=== PATIENT | female | born 1995 | race Two or more races ===

== ENCOUNTER → 2020-02-09 | Outpatient (CLI) | payer OTHER | END | disposition home or self-care (01) | LOC: LAB 10:24 | PROVIDERS: ATTEND Nurse Practitioner Family | DX: Z03.818 Encounter for observation for suspected exposure to other biological agents ruled out (principal) | CPT/HCPCS: C9803; U0003 ==

== ENCOUNTER → 2023-04-21 | Outpatient (CLI) | payer BC | END | disposition home or self-care (01) | LOC: XYW 08:47 | PROVIDERS: ATTEND Surgery | DX: R10.11 Right upper quadrant pain (principal) | CPT/HCPCS: 78226; A9537 ==

== ENCOUNTER 2023-06-25 06:12 | Inpatient (IN) | payer BC ==
[2023-06-24 13:46] LABS: Basophils # (auto) 0.1 10 ^3/uL (0-0.2); Basophils % (auto) 0.6 % (0.0-2.0); Eosinophils # (auto) 0.1 10 ^3/uL (0-0.8); Eosinophils % (auto) 0.9 % (0.0-7.0); Hematocrit 40.4 % (36.0-46.0); Hemoglobin 13.4 g/dL (12.2-16.2); Lymphocytes # (auto) 2.7 10 ^3/uL (0.4-5.4); Lymphocytes % (auto) 28.8 % (10.0-50.0); Mean Corpuscular Hemoglobin 30.7 pg (28.0-32.0); Mean Corpuscular Hgb Conc. 33.1 g/dL (32.0-36.0); Mean Corpuscular Volume 92.8 fL (80.0-100.0); Monocytes # (auto) 0.5 10 ^3/uL (0-1.3); Monocytes % (auto) 5.6 % (0.0-12.0); Neutrophils # (auto) 6.1 10 ^3/uL (1.6-8.6); Neutrophils % (auto) 64.1 % (37.0-80.0); Nucleated Red Blood Cells % 0.1 %; Red Blood Cells 4.36 10^6/uL (4.0-5.20); Red Cell Distribution Width 13.6 % (11.8-14.3); White Blood Cell 9.5 10^3/uL (4.4-10.8)
[2023-06-24 14:05] LABS: INR 1.01 (0.9-1.15); Partial Thromboplastin Time 29.4 SEC (24.5-34.5); Prothrombin Time 10.6 sec (9.3-11.8)
[2023-06-24 14:21] LABS: Potassium 3.7 mmol/L (3.5-5.1)
[2023-06-24 14:25] LABS: BUN/Creatinine Ratio 17.4 (10.0-20.0); Bilirubin, Total 0.3 mg/dL (0.2-1.0)
[2023-06-24 14:30] LABS: Urine Bacteria NONE SEEN /hpf (None Seen); Urine Blood 1+ /uL (Negative); Urine Clarity HAZY (Clear); Urine Color Yellow (Yellow); Urine Hyaline Cast FEW /lpf (0 - 2); Urine Protein, UAD Negative (Negative); Urine Specific Gravity 1.018 (1.001-1.035); Urine Urobilinogen Normal (Negative); Urine WBC 7 /hpf (0 - 5); Urine pH 6.5 (5.0-8.0)
[~2023-06-25] VITALS: Ht 200.7 cm; Wt 73.5 kg
[2023-06-25] MEDS ORDERED: ceFAZolin 1GM/50ML 100 ML IV ONE (06:36)
[2023-06-25] MEDS ORDERED: CELECOXIB 100 MG CAP PO ONE (07:15)
[2023-06-25] MEDS ORDERED: GABAPENTIN 400 MG CAP PO ONE (07:15)
[2023-06-25] MEDS ORDERED: ACETAMINOPHEN IV 1000 MG/100ML (10MG/ML) IV ONE (07:15)
[2023-06-25] MEDS ORDERED: ACETAMINOPHEN IV 100 ML IV ONE (07:19)
[2023-06-25] MEDS ORDERED: CELECOXIB 100 MG CAP ONE (07:19)
[2023-06-25] MEDS ORDERED: GABAPENTIN 400 MG CAP ONE (07:19)
[2023-06-25 08:26] VITALS: O2SAT 100
[2023-06-25] MEDS ORDERED: LABETALOL HCL 5 MG/ML 4ML SYRINGE IV PRN (08:45)
[2023-06-25] MEDS ORDERED: ONDANSETRON HCL 4 MG/2 ML VIAL IV PRN ×2 (08:45→14:30)
[2023-06-25] MEDS ORDERED: ePHEDrine SULFATE 50 MG/ML AMP IV PRN (08:45)
[2023-06-25] MEDS ORDERED: fentaNYL CITRATE 100 MCG/2 ML VL IV PRN (08:45)
[2023-06-25] MEDS ORDERED: hydrALAZINE HCL 20 MG/ML VL IV PRN (08:45)
[2023-06-25] MEDS ORDERED: FLUMAZENIL 0.1 MG/ML INJ 10ML MDV IV PRN (08:45)
[2023-06-25] MEDS ORDERED: NALOXONE HCL 0.4 MG/ML VIAL IV PRN (08:45)
[2023-06-25] MEDS ORDERED: oxyCODONE HCL 5MG TAB PO PRN (08:45)
[2023-06-25] MEDS: HYDROmorphone HCL 2 MG/ML VL/or syr IV PRN ×5 (08:52→20:25)
[2023-06-25] MEDS ORDERED: D5W/SOD CHL 0.45%/KCL 20MEQ 1,000 ML IV ONE (09:00)
[2023-06-25] MEDS ORDERED: HYDROmorphone HCL 2 MG/ML VL/or syr IV PRN ×2 (09:00→18:00)
[2023-06-25] MEDS ORDERED: ACETAMINOPHEN/CODEINE#3 (300/30mg) TAB PO PRN (09:00)
[2023-06-25] MEDS ORDERED: SODIUM CHLORIDE 0.9% 1,000 ML IV SCH (14:30)
[2023-06-25] MEDS: ceFAZolin 1GM/50ML 50 ML IV SCH ×2 (14:31→20:33)
[2023-06-25] MEDS: metroNIDAZOLE 500MG/100ML 100 ML IV SCH ×2 (15:10→22:11)
[2023-06-25 17:00] VITALS: BP 111/68; PULSE 116; RESP 18; TEMP 97.5; O2SAT 96
[2023-06-25 22:00] VITALS: BP 105/65; PULSE 99; RESP 18; TEMP 97.8; O2SAT 100
[2023-06-26] MEDS: ceFAZolin 1GM/50ML 50 ML IV SCH ×3 (01:45→14:09)
[2023-06-26] MEDS: HYDROmorphone HCL 2 MG/ML VL/or syr IV PRN (04:33)
[2023-06-26 05:00] VITALS: BP 104/65; PULSE 95; RESP 16; TEMP 97.6; O2SAT 100
[2023-06-26] MEDS: metroNIDAZOLE 500MG/100ML 100 ML IV SCH ×2 (05:50→17:06)
[2023-06-26 06:37] LABS: Basophils # (auto) 0 10 ^3/uL (0-0.2); Basophils % (auto) 0.1 % (0.0-2.0); Eosinophils # (auto) 0 10 ^3/uL (0-0.8); Eosinophils % (auto) 0.1 % (0.0-7.0); Hematocrit 37.5 % (36.0-46.0); Hemoglobin 12.7 g/dL (12.2-16.2); Lymphocytes # (auto) 2.3 10 ^3/uL (0.4-5.4); Lymphocytes % (auto) 21.2 % (10.0-50.0); Mean Corpuscular Hemoglobin 31.2 pg (28.0-32.0); Mean Corpuscular Hgb Conc. 33.8 g/dL (32.0-36.0); Mean Corpuscular Volume 92.2 fL (80.0-100.0); Monocytes # (auto) 0.7 10 ^3/uL (0-1.3); Monocytes % (auto) 6.6 % (0.0-12.0); Neutrophils # (auto) 7.7 10 ^3/uL (1.6-8.6); Red Blood Cells 4.07 10^6/uL (4.0-5.20); Red Cell Distribution Width 13.4 % (11.8-14.3); White Blood Cell 10.7 10^3/uL (4.4-10.8)
[2023-06-26 06:59] LABS: Albumin 3.6 g/dL (3.4-5.0); BUN/Creatinine Ratio 12.7 (10.0-20.0); Calcium 8.7 mg/dL (8.5-10.1); Potassium 3.9 mmol/L (3.5-5.1)
[2023-06-26 07:17] LABS: Bilirubin, Total 0.3 mg/dL (0.2-1.0); Total Protein 7.3 g/dL (6.4-8.2)
[2023-06-26 07:55] VITALS: PULSE 57; RESP 15; O2SAT 98
[2023-06-26 09:08] VITALS: BP 103/68; PULSE 57; RESP 15; TEMP 98.4; O2SAT 98
[2023-06-26 12:47] VITALS: BP 112/74; PULSE 78; RESP 15; TEMP 98; O2SAT 96
[2023-06-26] MEDS ORDERED: CEPH500T PO (14:44)
[2023-06-26] MEDS ORDERED: ACET300T58 PO (14:44)
[2023-06-26 16:22] VITALS: BP 108/66; PULSE 84; RESP 15; TEMP 97.9; O2SAT 96
[2023-06-26 17:50] VITALS: BP 108/66; PULSE 84; RESP 15; TEMP 97.9; O2SAT 96
== END 2023-06-26 18:51 | disposition home or self-care (01) | DRG 419 ==
LOC: SUR 06:12 → OVERFLOW 09:24 → CENTRAL 14:13
PROVIDERS: ADMIT Internal Medicine; ATTEND Internal Medicine
PROC: 0FT44ZZ Resection of Gallbladder, Percutaneous Endoscopic Approach (ICD-10-PCS; principal; 2023-06-25 07:25)
DX: K80.10 Calculus of gallbladder with chronic cholecystitis without obstruction (principal); G43.909 Migraine, unspecified, not intractable, without status migrainosus; Z88.5 Allergy status to narcotic agent
CPT/HCPCS: 36415; 80053; 81001; 84702; 85025; 85610; 85730; 86850; 86900; 86901; G0378; J0131; J0690; J2405; J3490